=== PATIENT | female | born 1975 | race Asian ===

== ENCOUNTER 2017-12-10 13:26 | Observation (INO) | payer OTHER, SELFPAY ==
[2017-12-10 14:01] LABS: Absolute Lymphocytes (CBC) 2.7 K/uL (0.7-4.9); Absolute Monocytes 0.4 K/uL (0.1-1.3); Absolute Neutrophil 4.7 K/uL (1.8-8.0); Basophils % 0.5 % (0-1.3); Eosinophils % 0.9 % (0-4.4); Lymphocytes % 33.9 % (15.3-44.8); MCH 28.1 pg (27.0-35.0); MCV 84.3 fL (80-100); MPV 8.6 fL (7.6-11.3); Monocytes % 5.1 % (3.3-12.3); RBC Red Blood Cell Count 4.75 M/uL (3.86-4.86)
[2017-12-10 14:06] LABS: Protime INR 1.15
--- NOTE | 2017-12-10 14:14 | RAD REPORT ---
EXAM DESCRIPTION: RAD - Chest Single View - 12/10/2017 2:08 pm CLINICAL HISTORY: Chest pain. COMPARISON: None. FINDINGS: Portable technique limits examination quality. The lungs are grossly clear. The heart is normal in size. No displaced fractures. IMPRESSION: No acute intrathoracic process suspected.
[2017-12-10 14:18] LABS: Bicarbonate 25 mEq/L (21-31); Glucose Level 122 mg/dL (65-120); Potassium 3.5 mEq/L (3.6-5.0); Sodium Level 133 mEq/L (135-145)
[2017-12-10 14:24] LABS: ALT/SGPT 21 IU/L (10-60); AST/SGOT 21 IU/L (10-42); Alkaline Phosphatase 63 IU/L (42-121); BUN Blood Urea Nitrogen 9 mg/dL (6-20); Bilirubin Direct 0.1 mg/dL (0-0.2); Bilirubin Total 0.6 mg/dL (0.3-1.2); Creatine Phosphokinase 59 IU/L (22-269); Magnesium 1.9 mg/dL (1.8-2.5); Protein, Total 7.8 g/dL (6.0-8.3)
[2017-12-10 14:26] LABS: CKMB Creatine Kinase MB 1.2 ng/ml (0.3-4.0)
--- NOTE | 2017-12-10 14:53 | RAD REPORT ---
EXAM DESCRIPTION: CT - Angio Aorta For Dissection - 12/10/2017 2:40 pm CLINICAL HISTORY: Chest pain radiating to the back. COMPARISON: None. TECHNIQUE: CT angiography of the aorta was performed with volume rendering. All CT scans are performed using dose optimization technique as appropriate and may include automated exposure control or mA/KV adjustment according to patient size. FINDINGS: A left aortic arch is present with normal branching pattern of the great vessels.No acute aortic finding is seen such as aneurysm, penetrating ulcer or dissection. The celiac axis and SMA de monstrate a common trunk origin off the aorta which is widely patent. The SHANELLE and renal arteries are widely patent. No evidence of pulmonary embolism. The lungs are clear. The liver demonstrates no focal mass or biliary dilatation.The spleen, pancreas, adrenal glands and k idneys are within normal limits for arterial phase imaging. No bowel obstruction, free fluid or abscess.No pathologic enlarged lymphadenopathy identified. No fracture or worrisome bone lesion seen. IMPRESSION: No acute aortic finding is demonstrated.
[2017-12-10] MEDS ORDERED: ONDANSETRON 4 MG (ODT) TAB PO PRN (15:28)
[2017-12-10] MEDS ORDERED: ENOXAPARIN 60 MG/0.6 ML SQ ONE (15:28)
[2017-12-10] MEDS ORDERED: ACETAMINOPHEN 500 MG TAB PO PRN (15:28)
--- NOTE | 2017-12-10 15:53 | EDPHYS ---
Physician Documentation [facility] Name: Alysha Thomas Age: 42 yrs Sex: Female : 1975 Arrival Date: 12/10/2017 Time: 13:26 Bed 8 Private MD: ED Physician Sae Armenta HPI: 12/10 13:31 This 42 yrs old Female presents to ER via EMS with complaints of Chest Pain > 30 rh1 y/o. 13:31 The patient or guardian reports chest pain that is located primarily in the substernal rh1 area. Onset: 2 day(s) ago. The pain radiates to the left arm, back. Associated signs and symptoms: Pertinent positives: abdominal pain, shortness of breath, Pertinent negatives: cough, diaphoresis, dizziness, headache, lower extremity pain, lower extremity swelling, lightheadedness, nausea, near syncope, palpitations, recent travel, syncope, vomiting. The chest pain is described as a pressure. Duration: The patient or guardian reports multiple episodes, that are intermittent, with no pattern. Modifying factors: The symptoms are alleviated by antacids, NTG, X1. the symptoms are aggravated by movement. Severity of pain: At its worst the pain was moderate in the emergency department the pain is unchanged. EMS care prior to arrival includes: aspirin, nitroglycerin. The patient has experienced a previous episode, "ulcer". The patient has not recently seen a physician. Pt reports 2 days ago she began with sternal chest pain described as "pressure," that radiates into upper back and left arm to her hand today. Her pain will come and go, initially was mildly improved with taking antacids, but has been worse since this am. She has increased pain with lifting her child at home. She will have intermittent SOB. She denies any vomiting, diaphoresis, urinary symptoms.. Historical: - Allergies: 13:29 Unknown cough medicine; la1 - PMHx: 13:29 gastric ulcer; la1 - Immunization history:: Adult Immunizations up to date. - Social history:: Smoking status: Patient/guardian denies using tobacco. ROS: 13:57 Constitutional: Negative for fever, chills rh1 13:57 ENT: Negative for difficulty swallowing, difficulty handling secretions, hoarseness. 13:57 Neck: Negative for pain with movement, pain at rest. 13:57 Cardiovascular: Positive for chest pain, Negative for edema, orthopnea, palpitations. 13:57 Respiratory: Positive for shortness of breath, Negative for cough, dyspnea on exertion, hemoptysis, wheezing. 13:57 Abdomen/GI: Positive for abdominal pain, Negative for nausea, vomiting, and diarrhea. 13:57 Back: Positive for radiated pain, Negative for decreased range of motion. 13:57 MS/extremity: Positive for pain, of the left arm, Negative for decreased range of motion, paresthesias. 13:57 Skin: Negative for diaphoresis. 13:57 Neuro: Negative for altered mental status, dizziness, headache, numbness, tingling, weakness. 13:57 All other systems are negative. Exam: 13:57 Constitutional: This is a well developed, well nourished patient who is awake, alert, rh1 and in no acute distress. Head/Face: Normocephalic, atraumatic. ENT: Nares patent. No nasal discharge, no septal abnormalities noted. Tympanic membranes are normal and external auditory canals are clear. Oropharynx with no redness, swelling, or masses, exudates, or evidence of obstruction, uvula midline. Mucous membranes moist. Neck: Trachea midline, and no cervical lymphadenopathy. Supple, full range of motion without nuchal rigidity. No Meningismus. Chest/axilla: Normal chest wall appearance and motion. Nontender with no deformity. No lesions are appreciated. Cardiovascular: Regular rate and rhythm with a normal S1 and S2. No gallops, murmurs, or rubs. No JVD. No pulse deficits. Respiratory: Lungs have equal breath sounds bilaterally, clear to auscultation. No rales, rhonchi or wheezes noted. No increased work of breathing. 13:57 Skin: Warm, dry with normal turgor. Normal color with no rashes, no lesions, and no evidence of cellulitis. MS/ Extremity: Pulses equal, no cyanosis. Neurovascular intact. Full, normal range of motion. 13:57 Cardiovascular: Pulses: no pulse deficits are appreciated, Pulses are 2+ in right radial artery, right posterior tibial artery, right dorsalis pedis artery, left radial artery, left posterior tibial artery and left dorsalis pedis artery. 13:57 Abdomen/GI: Inspection: abdomen appears normal, bruising, is not seen, distension, is not seen, Bowel sounds: normal, in all quadrants, active, all quadrants, Palpation: soft, in all quadrants, mild abdominal tenderness, in the epigastric area and left upper quadrant, rebound tenderness, is not appreciated, involuntary guarding, is not appreciated, Indicators: McBurney's point is not tender, Lilly's sign is negative, Rovsing's sign is negative, Liver: no appreciated palpable abnormalities. 13:57 Back: pain, that is mild, that is moderate, of the left scapular area, right scapular area, thoracic area and lumbar area, ROM is normal, painless, CVA tenderness, is absent. 13:57 Back: Exam negative for ecchymosis 13:57 Neuro: Orientation: is normal, to person, place \\T\\ time. Mentation: is normal, lucid, able to follow commands, Motor: is normal, moves all fours, strength is 5/5 in all extremities, Sensation: is normal, no obvious gross deficits, numbness, is not appreciated, tingling, is not appreciated. Vital Signs: 13:29 BP 123 / 74; Pulse 74; Resp 16; Temp 98.4(O); Pulse Ox 100% on R/A; Weight 58.97 kg; la1 Height 4 ft. 10 in. (147.32 cm); 13:46 BP 114 / 82 LA; dh3 13:46 BP 117 / 65 RA; dh3 14:15 BP 102 / 75; Pulse 70; Resp 18 S; Pulse Ox 100% on R/A; jl7 15:01 BP 103 / 61; Pulse 70; Resp 16 S; Pulse Ox 100% on R/A; jl7 15:36 BP 111 / 67; Pulse 68; Resp 16 S; Pulse Ox 99% on R/A; jl7 16:30 BP 109 / 65; Pulse 69; Resp 16 S; Pulse Ox 100% on R/A; jl7 17:35 BP 124 / 70; Pulse 70; Resp 16 S; Pulse Ox 100% on R/A; jl7 13:29 Body Mass Index 27.17 (58.97 kg, 147.32 cm) la1 MDM: 13:31 Patient medically screened. rh1 15:50 Data reviewed: vital signs, nurses notes, lab test result(s), EKG, radiologic studies, rh1 plain films, I have discussed the patient's presentation/case with the attending Emergency Department Physician; and as a result, I will admit patient. Data interpreted: Pulse oximetry: on room air is 99 %. Interpretation: normal. Counseling: I had a detailed discussion with the patient and/or guardian regarding: the historical points, exam findings, and any diagnostic results supporting the discharge/admit diagnosis, lab results, radiology results, the need for further work-up and treatment in the hospital. Physician consultation: Cherry Hanley MD was called at 15:30, was contacted at 15:30, regarding admission. 16:05 Physician consultation: Cherry Hanley MD in the emergency department to see patient at [facility] 16:05. 12/10 13:43 Order name: Basic Metabolic Panel; Complete Time: 14:30 12/10 13:43 Order name: BNP; Complete Time: 14:30 12/10 13:43 Order name: CBC with Diff; Complete Time: 14:05 [facility] 12/10 13:43 Order name: Ckmb; Complete Time: 14:30 [facility] 12/10 13:43 Order name: CPK; Complete Time: 14:30 12/10 13:43 Order name: LFT's; Complete Time: 14:30 12/10 13:43 Order name: Magnesium; Complete Time: 14:30 12/10 13:43 Order name: PT-INR; Complete Time: 14:10 12/10 13:43 Order name: Ptt, Activated; Complete Time: 14:10 12/10 13:43 Order name: Troponin (emerg Dept Use Only); Complete Time: 14:30 [facility] 12/10 15:32 Order name: Thyroid Stimulating Hormone EDMS 12/10 15:32 Order name: CBC with Automated Diff EDMS 12/10 15:32 Order name: CBC with Automated Diff EDMS 12/10 15:32 Order name: Comprehensive Metabolic Panel EDMS 12/10 13:43 Order name: XRAY Chest (1 view); Complete Time: 14:30 12/10 13:43 Order name: CT Aorta for Dissection; Complete Time: 14:57 rh1 12/10 15:32 Order name: Echo with Doppler EDMS 12/10 15:32 Order name: Comprehensive Metabolic Panel EDMS 12/10 15:32 Order name: Lipid Profile EDMS 12/10 15:32 Order name: Lipid Profile [facility] 12/10 15:32 Order name: Magnesium [facility] 12/10 15:32 Order name: Magnesium [facility] 12/10 15:32 Order name: Phosphorus [facility] 12/10 15:32 Order name: Phosphorus [facility] 12/10 15:32 Order name: Troponin I [facility] 12/10 15:32 Order name: Troponin I [facility] 12/10 15:32 Order name: Troponin I [facility] 12/10 15:32 Order name: Troponin I [facility] 12/10 15:39 Order name: Urine Dipstick--Ancillary (enter results) [facility] 12/10 15:39 Order name: Urine --Ancillary (enter results) [facility] 12/10 13:43 Order name: EKG; Complete Time: 13:43 12/10 13:43 Order name: Cardiac monitoring; Complete Time: 13:46 12/10 13:43 Order name: EKG - Nurse/Tech; Complete Time: 13:46 12/10 13:43 Order name: IV Saline Lock; Complete Time: 13:46 12/10 13:43 Order name: Labs collected and sent; Complete Time: 13:46 12/10 13:43 Order name: O2 Per Protocol; Complete Time: 13:46 12/10 13:43 Order name: O2 Sat Monitoring; Complete Time: 13:46 12/10 13:43 Order name: Urine Dipstick-Ancillary (obtain specimen); Complete Time: 15:34 12/10 13:43 Order name: Misc. Order: bilateral BP on upper extremities please; Complete Time: 13:49 [facility] 12/10 15:32 Order name: CONS Physician Consult [facility] 12/10 15:32 Order name: Heart Healthy [facility] Administered Medications: 15:33 Drug: Lovenox 1 mg/kg Route: Sub-Q; Site: abdomen; jl7 16:30 Follow up: Response: No adverse reaction jl7 Disposition: 12/10/17 15:52 Hospitalization ordered by Cherry Hanley for Observation. Preliminary diagnosis are Other chest pain, Shortness of breath, ACS. - Bed requested for Telemetry/MedSurg (observation). - Status is Observation. jl7 - Condition is Stable. - Problem is new. - Symptoms have improved. UTI on Admission? No Addendum: 12/13/2017 07:45 Co-signature as Attending Physician, Sae Armenta MD I agree with the assessment and w a plan of care. Signatures: Dispatcher [employer] EDMS John Grimes, RN RN la1 Rosi Contreras, MAYUR HEEL DIPPER rh1 Amrit Smalls, RN RN jl7 Sae Armenta MD MD wa [place], MyKena 2 Corrections: (The following items were deleted from the chart) 12/10 13:58 13:31 Pt reports 2 days ago she began with sternal chest pain, that radiates into upper rh1 back and left arm today.. rh1 14:06 13:31 Pt reports 2 days ago she began with sternal chest pain described as "pressure," rh1 that radiates into upper back and left arm today. Her pain will come and go, initially was mildly improved with taking antacids, but has been worse since this am. She has increased pain with lifting her child at home. She will have intermittent SOB. She denies any vomiting, diaphoresis, urinary symptoms.. rh1
--- NOTE | 2017-12-10 15:53 | ER ---
Nurse's Notes [facility] Name: Alysha Thomas Age: 42 yrs Sex: Female : 1975 Arrival Date: 12/10/2017 Time: 13:26 Bed 8 Private MD: Diagnosis: Other chest pain;Shortness of breath;ACS Presentation: 12/10 13:27 Presenting complaint: EMS states: intermittent chest pressure for 2 days, worse today, la1 Pain also in left arm, upper back and side of neck. Pt reports hx of similar pain with gastric ulcer. EMS gave 1 SL nitro and 324 ASA TENTER FEEDER. Transition of care: patient was not received from another setting of care. Onset of symptoms was December 10, 2017. Care prior to arrival: None. 13:27 Method Of Arrival: EMS: [facility] la1 13:27 Acuity: IVETTE 3 la1 Historical: - Allergies: 13:29 Unknown cough medicine; la1 - PMHx: 13:29 gastric ulcer; la1 - Immunization history:: Adult Immunizations up to date. - Social history:: Smoking status: Patient/guardian denies using tobacco. Screenin:45 Abuse screen: Denies threats or abuse. Denies injuries from another. Nutritional jl7 screening: No deficits noted. Tuberculosis screening: No symptoms or risk factors identified. Fall Risk IV access (20 points). Total [place] Fall Scale indicates No Risk (0-24 pts). Assessment: 13:45 General: Appears in no apparent distress. uncomfortable, Behavior is calm, cooperative, jl7 appropriate for age. Pain: Complains of pain in anterior aspect of left upper chest Pain radiates to left arm Pain currently is 2 out of 10 on a pain scale. at worst was 9 out of 10 on a pain scale. Quality of pain is described as pressure, Pain began 2-3 days ago. Is intermittent, Also complains of shortness of breath. Neuro: Level of Consciousness is awake, alert, obeys commands, Oriented to person, place, time, situation. Cardiovascular: Heart tones S1 S2 present Patient's skin is warm and dry. Respiratory: Reports shortness of breath on exertion Airway is patent Respiratory effort is even, unlabored, shallow, Respiratory pattern is regular, symmetrical, Breath sounds are clear bilaterally. GI: No signs and/or symptoms were reported involving the gastrointestinal system. Patient currently denies diarrhea, nausea, vomiting. : No signs and/or symptoms were reported regarding the genitourinary system. EENT: No signs and/or symptoms were reported regarding the EENT system. Derm: Skin is pink, warm \T\ dry. Musculoskeletal: No signs and/or symptoms reported regarding the musculoskeletal system. 14:45 Reassessment: Patient and/or family updated on plan of care and expected duration. Pain jl7 level reassessed. Patient is alert, oriented x 3, equal unlabored respirations, skin warm/dry/pink. 15:37 Reassessment: Patient and/or family updated on plan of care and expected duration. Pain jl7 level reassessed. Patient is alert, oriented x 3, equal unlabored respirations, skin warm/dry/pink. Patient denies pain at this time. Patient states feeling better. 16:02 Reassessment: Spoke with lab about troponin and TSH, will be drawn at 1930 as ordered iw by Dr. Hanley. 16:30 Reassessment: Patient and/or family updated on plan of care and expected duration. Pain jl7 level reassessed. Patient is alert, oriented x 3, equal unlabored respirations, skin warm/dry/pink. Patient denies pain at this time. 17:30 Reassessment: No changes from previously documented assessment. Patient and/or family jl7 updated on plan of care and expected duration. Pain level reassessed. Patient is alert, oriented x 3, equal unlabored respirations, skin warm/dry/pink. Vital Signs: 13:29 BP 123 / 74; Pulse 74; Resp 16; Temp 98.4(O); Pulse Ox 100% on R/A; Weight 58.97 kg; la1 Height 4 ft. 10 in. (147.32 cm); 13:46 BP 114 / 82 LA; dh3 13:46 BP 117 / 65 RA; dh3 14:15 BP 102 / 75; Pulse 70; Resp 18 S; Pulse Ox 100% on R/A; jl7 15:01 BP 103 / 61; Pulse 70; Resp 16 S; Pulse Ox 100% on R/A; jl7 15:36 BP 111 / 67; Pulse 68; Resp 16 S; Pulse Ox 99% on R/A; jl7 16:30 BP 109 / 65; Pulse 69; Resp 16 S; Pulse Ox 100% on R/A; jl7 17:35 BP 124 / 70; Pulse 70; Resp 16 S; Pulse Ox 100% on R/A; jl7 13:29 Body Mass Index 27.17 (58.97 kg, 147.32 cm) la1 ED Course: 13:26 Patient arrived in ED. la1 13:28 Triage completed. la1 13:29 Arm band placed on left wrist. la1 13:31 Rosi Contreras NP is PHCP. rh1 13:31 Sae Armenta MD is Attending Physician. rh1 13:37 Inserted saline lock: 22 gauge in right antecubital area, using aseptic technique. dh3 Blood collected. 13:44 Radiology exam delayed due to lab results not completed at this time. IV insertion jg1 attempt and/or patient not having appropriate IV at this time. 13:44 EKG done, by quality control tech raw materials. reviewed by Rosi Contreras NP. 13:45 Radiology exam delayed due to test not completed at this time. j 13:45 Patient has correct armband on for positive identification. Placed in gown. Bed in low jl7 position. Call light in reach. Side rails up X 1. bus driver/monitor on. Pulse ox on. NIBP on. 13:45 Oxygen administration via nasal cannula \T\ 2L/min. jl7 13:46 Amrit Smalls RN is Primary Nurse. jl7 13:49 Initial lab(s) drawn, by mi, sent to lab. dh3 14:03 Radiology exam delayed due to lab results not completed at this time. jg1 14:06 Radiology exam delayed due to test not completed at this time. jg1 14:07 X-ray completed. Portable x-ray completed in exam room. 14:08 XRAY Chest (1 view) In Process Unspecified. EDMS 14:[address] via stretcher. vm2 14:41 CT Aorta for Dissection In Process Unspecified. EDMS 15:06 EKG done, by quality control tech raw materials. reviewed by Rosi Contreras NP Repeat EKG. at1 15:33 Urine collected: clean catch specimen, cloudy. 3 15:51 Cherry Hanley MD is Hospitalizing Provider. rh1 17:27 No provider procedures requiring assistance completed. Patient admitted, IV remains in jl7 place. intact, No redness/swelling at site. Administered Medications: 15:33 Drug: Lovenox 1 mg/kg Route: Sub-Q; Site: abdomen; jl7 16:30 Follow up: Response: No adverse reaction jl7 Outcome: 15:52 Decision to Hospitalize by Provider. rh1 17:27 Admitted to Tele accompanied by tech, via wheelchair, room 402, with chart, Report jl7 called to MARLENE Byrne 17:27 Condition: stable 17:27 Discharge instructions given to patient, family, Instructed on the need for admit, Demonstrated understanding of instructions. 17:33 Patient left the ED. jl7 Signatures: Dispatcher [employer] Melani William jJocelin Staples, RN RN guillaume Leiva, Tara Green, church history teacher EKG [place]1 John Grimes RN RN la1 Grace Grimm Rachel, MAYUR PAMPHLET DISTRIBUTOR 1 Amrit Smalls RN RN jl7 Tiffanie Betancur [facility] Sonia Chiu [facility]
[2017-12-10] MEDS: NA CHLORIDE 0.9% 1,000 ML IV SCH (16:00)
[2017-12-10 17:52] VITALS: BMI 27.1
[2017-12-10 18:10] LABS: Urine Blood 3+ (NEG); Urine Glucose NEGATIVE (NEG); Urine Protein NEGATIVE (NEG); Urine Specific Gravity <1.005 (1.005-1.030); Urine pH 6.5 (5.0-7.0)
--- NOTE | 2017-12-10 18:14 | P.HP ---
Certification for Inpatient Patient admitted to: Observation With expected LOS: <2 Midnights Patient will require the following post-hospital care: None Practitioner: I am a practitioner with admitting privileges, knowledge of patient current condition, hospital course, and medical plan of care. Services: Services provided to patient in accordance with Admission requirements found in Title 42 Section 412.3 of the Code of Federal Regulations Patient History Date of Service: 12/10/17 Primary Care Provider: Jack Chavez Reason for admission: Chest Pain History of Present Illness: This is a 42-year-old female with no significant past medical history who presented to the ED complaining of having some chest pain that started about 2 days ago. Patient stated that she was in her usual state of health until she started having chest pain in her left side which is radiating down to her left arm in her back. Associated with the chest pain. Patient also had some upset stomach. Patient stated that she has never had symptoms before and thus decided to come to the ER T further checked out. Patient does not currently take any medications at home usually is not great health. In the ER patient had elevated troponin x1 0.07 an EKG was concerning for flipped T-waves and thus medicine was consulted to admit the patient for ACS rule out Allergies Unknown cough medicine Allergy (Uncoded 12/10/17 17:37) Unknown Home Medications: Omeprazole [Prilosec] 40 mg PO DAILY 12/10/17 - Past Medical/Surgical History Has patient received pneumonia vaccine in the past: No Diabetic: Yes -: Borderline diabetes -: C-sec X2 -: Cyst removal of Left breast - 20 years ago - Family History Father -: Heart disease, Diabetes Mother -: Hypertension - Social History Smoking Status: Never smoker Alcohol use: No CD- Drugs: No Caffeine use: Yes Place of Residence: Home Review of Systems General: As per HPI Physical Examination - Vital Signs Temperature: 98.6 F Blood Pressure: 118/56 Pulse: 74 Respirations: 16 Pulse Ox (%): 98 - Physical Exam General: Alert, In no apparent distress, Oriented x3 HEENT: Atraumatic, PERRLA, Mucous membr. moist/pink, EOMI, Sclerae nonicteric Neck: Supple, 2+ carotid pulse no bruit, No LAD, Without JVD or thyroid abnormality Respiratory: Clear to auscultation bilaterally, Normal air movement Cardiovascular: Regular rate/rhythm, Normal S1 S2 Gastrointestinal: Normal bowel sounds, No tenderness Musculoskeletal: No tenderness Integumentary: No rashes Neurological: Normal gait, Normal speech, Normal strength at 5/5 x4 extr, Normal tone, Normal affect Lymphatics: No axilla or inguinal lymphadenopathy - Studies Laboratory Data (last 24 hrs) 12/10/17 13:35: PT 13.6 H, INR 1.15, APTT 24.9 12/10/17 13:35: WBC 7.9, Hgb 13.3, Hct 40.0, Plt Count 237 12/10/17 13:35: B-Natriuretic Peptide 22 12/10/17 13:35: Sodium 133 L, Potassium 3.5 L, BUN 9, Creatinine 0.56, Glucose 122 H, Magnesium 1.9, Total Bilirubin 0.6, AST 21, ALT 21, Alkaline Phosphatase 63 Assessment and Plan - Problems (Diagnosis) (1) Chest pain Current Visit: Yes Status: Acute Plan: Atypical Chest Pain -Troponin x 1 mildly elevated with EKG changes. -Echo Pending -Cardiology consulted. Awaiting reccs -Will repeat troponin -ASA, Statin and BB Qualifiers: Chest pain type: unspecified Qualified Code(s): R07.9 - Chest pain, unspecified Discharge Plan: Home Plan to discharge in: 24 Hours - Advance Directives Does patient have a Living Will: No Does patient have a Durable POA for Healthcare: No - Code Status/Comfort Care Code Status Assessed: Yes Critical Care: No
[2017-12-10] MEDS ORDERED: ATORVASTATIN 40 MG TAB PO SCH (21:00)
[2017-12-11] MEDS: NA CHLORIDE 0.9% 1,000 ML IV SCH (03:47)
[2017-12-11 04:06] VITALS: O2SAT 100
[2017-12-11] MEDS ORDERED: METOPROLOL XL 25 MG TAB PO SCH (06:00)
[2017-12-11] MEDS ORDERED: PANTOPRAZOLE 40MG TABLET PO SCH (06:30)
[2017-12-11 07:06] LABS: ALT/SGPT 20 IU/L (10-60); AST/SGOT 21 IU/L (10-42); Albumin 3.3 g/dL (3.2-5.5); Alkaline Phosphatase 51 IU/L (42-121); BUN Blood Urea Nitrogen 10 mg/dL (6-20); Bicarbonate 23 mEq/L (21-31); Bilirubin Total 0.4 mg/dL (0.3-1.2); Glucose Level 181 mg/dL (65-120); HDL Cholesterol 23 mg/dL (29-89); LDL Cholesterol, Calculated ND (<130); Magnesium 1.8 mg/dL (1.8-2.5); Phosphorus 2.7 mg/dL (2.5-4.3); Potassium 3.7 mEq/L (3.6-5.0); Protein, Total 6.1 g/dL (6.0-8.3); Sodium Level 137 mEq/L (135-145)
[2017-12-11 07:09] LABS: Absolute Lymphocytes (CBC) 2.3 K/uL (0.7-4.9); Absolute Monocytes 0.4 K/uL (0.1-1.3); Absolute Neutrophil 3.8 K/uL (1.8-8.0); Basophils % 0.6 % (0-1.3); Eosinophils % 1.7 % (0-4.4); Hematocrit 35.5 % (36.0-45.0); MCH 29.4 pg (27.0-35.0); MCV 84.4 fL (80-100); Monocytes % 6.4 % (3.3-12.3)
[2017-12-11 07:26] LABS: LDL, Direct 42 mg/dl (<130)
[2017-12-11] MEDS ORDERED: ASPIRIN 81 MG CHEWABLE TABLET PO SCH (09:00)
[2017-12-11] MEDS ORDERED: HOME MED 1 EA UNK (Omeprazole [Prilosec] 40 MG) PO SCH (09:00)
[2017-12-11 13:46] VITALS: BP 153/89; TEMP 98.2
--- NOTE | 2017-12-11 14:29 | P.SSS ---
Patient History Date of Service: 12/11/17 Primary Care Provider: [place] Reason for admission: Chest Pain History of Present Illness: This is a 42-year-old female with no significant past medical history who presented to the ED complaining of having some chest pain that started about 2 days ago. Patient stated that she was in her usual state of health until she started having chest pain in her left side which is radiating down to her left arm in her back. Associated with the chest pain. Patient also had some upset stomach. Patient stated that she has never had symptoms before and thus decided to come to the ER T further checked out. Patient does not currently take any medications at home usually is not great health. In the ER patient had elevated troponin x1 0.07 an EKG was concerning for flipped T-waves and thus medicine was consulted to admit the patient for ACS rule out Allergies Unknown cough medicine Allergy (Uncoded 12/10/17 17:37) Unknown Home Medications: Omeprazole [Prilosec] 40 mg PO DAILY 12/10/17 Aspirin Chewable [Aspirin Chewable*] 81 mg PO DAILY #30 tab.chew 12/11/17 Atorvastatin Calcium [Lipitor] 40 mg PO BEDTIME #30 tab 12/11/17 Fenofibrate [Tricor*] 160 mg PO DAILY #30 tab 12/11/17 Metoprolol Succinate [Toprol Xl*] 12.5 mg PO [id number] #30 tab 12/11/17 - Past Medical/Surgical History Has patient received pneumonia vaccine in the past: No Diabetic: Yes -: Borderline diabetes -: C-sec X2 -: Cyst removal of Left breast - 20 years ago - Family History Father -: Heart disease, Diabetes Mother -: Hypertension - Social History Smoking Status: Never smoker Alcohol use: No CD- Drugs: No Caffeine use: Yes Place of Residence: Home Review of Systems General: As per HPI Physical Examination - Vital Signs Temperature: 98.2 F Blood Pressure: 153/89 Pulse: 88 Respirations: 18 Pulse Ox (%): 99 - Physical Exam General: Alert, In no apparent distress, Oriented x3 HEENT: Atraumatic, PERRLA, Mucous membr. moist/pink, EOMI, Sclerae nonicteric Neck: Supple, 2+ carotid pulse no bruit, No LAD, Without JVD or thyroid abnormality Respiratory: Clear to auscultation bilaterally, Normal air movement Cardiovascular: Regular rate/rhythm, Normal S1 S2 Gastrointestinal: Normal bowel sounds, No tenderness Musculoskeletal: No tenderness Integumentary: No rashes Neurological: Normal gait, Normal speech, Normal strength at 5/5 x4 extr, Normal tone, Normal affect Lymphatics: No axilla or inguinal lymphadenopathy - Diagnosis (Problem(s)) (1) Chest pain Status: Acute Plan: Atypical Chest Pain -Troponin x 2 mildly elevated with EKG changes. -Echo WNL with EF of 75% -Cardiology consulted. -Reccs Outpt vs Inpatient Cardiac Cath -Pt wants to go home and would like to get Outpt Cardiac Cath. [facility], BB and Fenofibrate Patient to be discharged home today and have follow up with cardiology on Wednesday at 8:30 a.m. to be scheduled for cardiac catheterization on Wednesday morning. Patient will get prescription for aspirin beta-xander statin and phenol fibroid. Patient was asked to return to the ER if she has started having nausea vomiting chest pain or any shortness of breath or any other symptoms associated with her chest. Qualifiers: Chest pain type: unspecified Qualified Code(s): R07.9 - Chest pain, unspecified - Disposition Disposition: ROUTINE DISCHARGE Condition: GOOD Patient Discharge Instructions: Please f/u with Dr Ray in the clinic on Wednesday at 8:30 AM. -You will be scheduled for Heart Catherization on wednesday. New medication. ASA 81mg daily. Lipitor 40mg daily. Fenofibrate 145mg daily. Metoprolol 12.5mg daily. You will need to eat low fat and low carb diet. Diet: Low Fat diet and Carb diet. Activity: Ad suha
--- NOTE | 2017-12-11 17:54 | CON ---
Date of Consultation: 12/11/2017 The patient admitted on 12/10/2017. I saw the patient on 12/11/2017. Reason For Consultation: Acute coronary syndrome. History Of Present Illness: Ms. Thomas is a 42-year-old woman who works for [employer]. She do es not have really any past medical history except for occasional gastroesophageal reflux disease for which she takes Prilosec. She has a strong family history of heart disease. She has a strong famil y history of dyslipidemia. She came in with chest pain radiating to her left arm intermittently for about 3 days. She was noted to have a normal EKG chest x-ray, CPK, MB, but had a positive troponin o f 0.07. She was found to have a triglyceride of 720. She is pain-free after metoprolol, aspirin, an d Lipitor. Past Medical History: Otherwise negative. Allergies: TO SOME COUGH MEDICINE THAT IS [id number]. Review of Systems: Negative. Social History: Negative. Family History: Positive for heart disease in her grandparents and her father. Physical Examination: General: She appeared to be slightly anxious, but no acute distress. Vital Signs: Stable. She was afebrile. HEENT: Negative. Neck: Supple. No bruit. Chest: Clear. Cardiac: Reveals regular rhythm and rate. No murmurs, gallops, or rubs. Abdomen: Benign. Extremities: Reveal No clubbing, cyanosis, or edema. Diagnostic Data: As stated earlier. Impression And Plan: 1.Symptoms of chest pain radiating to the left arm with positive enzymes, positive family history, a nd triglycerides of 720. The case was discussed with Ms. Thomas. She obviously had non-ST elevation myocardial infarction. She is asymptomatic. She needs to be on statin, beta blockers, and aspirin. She is also on Prilosec. I would avoid Plavix for now. We will plan to do a heart catheterization early next week. She understand the risks and the benefit of the procedure. She agrees to proceed. The case was discussed with her and Dr. Hanley. MARZENA/LEONA Voice ID: [id number] Report ID: [id number]
[2017-12-12] MEDS ORDERED: FENOFIBRATE 160 MG TAB PO SCH (09:00)
--- NOTE | 2017-12-12 22:42 | EKG ---
Test Date: 2017-12-10 Test Time: 15:01:46 Water Pump Operator: MEDINA MEASUREMENT RESULTS: Intervals: Rate: 69 ME: 146 QRSD: 74 QT: 472 QTc: 505 [place]: P: 66 ME: 146 QRS: 10 T: -82 INTERPRETIVE STATEMENTS: Normal sinus rhythm T wave abnormality, consider inferolateral ischemia Prolonged QT Abnormal ECG Compared to ECG 12/10/2017 13:39:04 Prolonged QT interval now present Myocardial infarct finding no longer present T-wave abnormality still present Possible ischemia still present Electronically Signed On 12-12-17 22:42:16 CDT by Kevin Gonzales
--- NOTE | 2017-12-12 22:43 | EKG ---
Test Date: 2017-12-10 Test Time: 13:39:04 Medical Office Receptionist: RANDI MEASUREMENT RESULTS: Intervals: Rate: 70 LA: 144 QRSD: 72 QT: 440 QTc: 475 [place]: P: 60 LA: 144 QRS: 2 T: -71 INTERPRETIVE STATEMENTS: Normal sinus rhythm Possible Inferior infarct, age undetermined T wave abnormality, consider lateral ischemia Abnormal ECG No previous ECG available for comparison Electronically Signed On 12-12-17 22:42:31 CDT by Kevin Gonzales
--- NOTE | 2017-12-13 07:45 | ECHO ---
HEIGHT: 4 ft 10 in WEIGHT: 130 lb 0 oz DATE OF STUDY: 12/10/[address]: Cherry Hanley MD 2-DIMENSIONAL: YES M.MODE: YES DOPPLER: YES COLOR FLOW: YES TDS: NO PORTABLE: NO DEFINITY: NO BUBBLE STUDY: NO DIAGNOSIS: ACS CARDIAC HISTORY: CATHERIZATION: NO SURGERY: NO PROSTHETIC VALVE: NO PACEMAKER: NO MEASUREMENTS (cm) DIASTOLIC (NORMALS) SYSTOLIC (NORMALS) IVSd 0.9 (0.6-1.2) LA Diam 2.6 (1.9-4.0) LVEF 75% LVIDd 3.8 (3.5-5.7) LVIDs 2.2 (2.0-3.5) %FS 43% LVPWd 0.8 (0.6-1.2) Ao Diam 2.2 (2.0-3.7) 2 DIMENSIONAL ASSESSMENT: RIGHT ATRIUM: NORMAL LEFT ATRIUM: NORMAL RIGHT VENTRICLE: NORMAL LEFT VENTRICLE: NORMAL TRICUSPID VALVE: NORMAL MITRAL VALVE: NORMAL PULMONIC VALVE: NORMAL AORTIC VALVE: NORMAL PERICARDIAL EFFUSION: NONE AORTIC ROOT: NORMAL LEFT VENTRICULAR WALL MOTION: NORMAL DOPPLER/COLOR FLOW: MILD TRICUSPID REGURGITATION. COMMENTS: MILD TRICUSPID REGURGITATION. NORMAL LEFT SIZE AND FUNCTION. NO WALL MOTION ABNORMALITY. TECHNOLOGIST: Campos BEAULIEU
== END 2017-12-11 14:12 | disposition home or self-care (01) ==
LOC: ER 13:26 → ERHOLD 15:29 → 4TH 17:27
PROVIDERS: ADMIT Nurse Practitioner Family; ATTEND Family Medicine
DX: R07.89 Other chest pain (principal)
CPT/HCPCS: 36415; 71045; 71275; 74175; 80048; 80053; 80061; 80076; 81003; 81025; 82550; 82553; 83690; 83735; 83880; 84100; 84443; 84484; 85025; 85610; 85730; 93005; 93306; 94760; 96372; 99285; G0378; J1650; J7030; Q9967

== ENCOUNTER 2017-12-14 00:20 | Observation (INO) | payer SELFPAY ==
--- NOTE | 2017-12-14 00:54 | ER ---
Nurse's Notes [facility] Name: Alysha Thomas Age: 42 yrs Sex: Female : 1975 Arrival Date: 12/14/2017 Time: 00:22 Bed 8 Private MD: Diagnosis: Other chest pain Presentation: 12/14 00:23 Presenting complaint: Patient states: I was seen here 2 weeks ago with chest pain and tl1 was suppose to have a cardiac cath but I rescheduled it because I was scared. I am still having chest pain. Transition of care: patient was not received from another setting of care. Onset of symptoms was December 14, 2017. Initial Sepsis Screen: Does the patient meet any 2 criteria? No. Patient's initial sepsis screen is negative. Does the patient have a suspected source of infection? No. Patient initial sepsis screen negative. Care prior to arrival: Medication(s) given: ASA, x 3, Nitro spray. 00:23 Method Of Arrival: EMS: [facility] tl1 00:23 Acuity: IVETTE 3 tl1 WEB CONTENT SPECIALIST: 00:24 LMP N/A - Irregular menses tl1 Historical: - Allergies: 00:43 brodil cough syrup; tl1 - Home Meds: 00:43 Metoprolol Tartrate Oral [Active]; fenofibrate oral oral [Active]; Aspirin Oral tl1 [Active]; atorvastatin oral oral [Active]; - PMHx: 00:43 gastric ulcer; High Cholesterol; tl1 - Immunization history:: Adult Immunizations up to date. - Social history:: Smoking status: Patient/guardian denies using tobacco. - Family history:: not pertinent. Screenin:58 Abuse screen: Denies threats or abuse. Denies injuries from another. Nutritional tl1 screening: No deficits noted. Tuberculosis screening: No symptoms or risk factors identified. Fall Risk IV access (20 points). Assessment: 00:58 General: Appears in no apparent distress. Behavior is calm, cooperative, appropriate tl1 for age. Pain: Pain does not radiate. Pain began 2 hours ago. Neuro: Level of Consciousness is awake, alert, obeys commands, Oriented to person, place, time. Cardiovascular: Reports chest pain, Capillary refill < 3 seconds Patient's skin is warm and dry. Rhythm is sinus rhythm Chest pain is described as mild, quality is indigestion, is located in epigastric area began 2 hours prior to arrival. Respiratory: Airway is patent Trachea midline Respiratory effort is even, unlabored, Breath sounds are clear bilaterally. GI: Abdomen is non-distended, Bowel sounds present X 4 quads. Abd is soft and non tender X 4 quads. : No signs and/or symptoms were reported regarding the genitourinary system. 01:54 Reassessment: Patient appears in no apparent distress at this time. Patient and/or ao family updated on plan of care and expected duration. Pain level reassessed. Patient is alert, oriented x 3, equal unlabored respirations, skin warm/dry/pink. Patient to be admitted to the hospital. Patient agree with the POC. 02:08 Reassessment: Dr Germain at bedside talking to patient. ao Vital Signs: 00:24 BP 110 / 73; Pulse 74; Resp 16; Temp 98.2; Pulse Ox 98% on R/A; Weight 58.06 kg; Height tl1 4 ft. 10 in. (147.32 cm); Pain 3/10; 01:54 BP 98 / 62; Pulse 82; Resp 16; Pulse Ox 100% ; Pain 0/10; ao 00:24 Body Mass Index 26.75 (58.06 kg, 147.32 cm) tl1 ED Course: 00:22 Patient arrived in ED. tl1 00:22 Teresa Aguilar, RN is Primary Nurse. tl1 00:24 Triage completed. tl1 00:25 Arm band placed on right wrist. EKG completed in triage. Results shown to MD. tl1 00:33 Pawel Jensen MD is Attending Physician. ghanshyam 00:40 X-ray completed. Portable x-ray completed in exam room. Patient tolerated procedure kw well. 00:41 XRAY Chest (1 view) In Process Unspecified. EDMS 00:46 Initial lab(s) drawn, by me, sent to lab. EKG done, by ED staff, reviewed by Pawel Jensen MD. 00:53 Martin Dorsey MD is Hospitalizing Provider. ghanshyam 01:53 Patient has correct armband on for positive identification. radiation monitor on. Pulse ao ox on. NIBP on. 01:53 Patient maintains SpO2 saturation greater than 95% on room air. ao 02:45 No provider procedures requiring assistance completed. Patient admitted, IV remains in ao place. Administered Medications: 00:54 Not Given (Patient had aspir in the way to ER): Aspirin 81 mg PO once ao 01:08 Drug: Lovenox 1 mg/kg Route: Sub-Q; Site: abdomen; ao 01:56 Follow up: Response: No adverse reaction ao 01:12 Drug: ProTONIX 40 mg Route: IVP; Site: right antecubital; ao 01:56 Follow up: Response: No adverse reaction ao Outcome: 00:53 Decision to Hospitalize by Provider. ghanshyam 02:45 Admitted to Tele accompanied by tech, room 430, Report called to MARLENE Irizarry ao 02:45 Condition: stable 02:45 Instructed on the need for admit. 02:46 Patient left the ED. ao Signatures: Dispatcher [employer] EDPawel Vasquez MD MD cha Whitley, Kimberlee kw Lasagna, Tonya, RN RN tl1 Edu Webster RN RN Cole Bustillo [facility]
--- NOTE | 2017-12-14 00:54 | EDPHYS ---
Physician Documentation [facility] Name: Alysha Thomas Age: 42 yrs Sex: Female : 1975 Arrival Date: 12/14/2017 Time: 00:22 Bed 8 Private MD: ED Physician Pawel Jensen HPI: 12/14 00:47 This 42 yrs old Female presents to ER via EMS with complaints of Chest Pain > 30 ghanshyam y/o. 00:47 The patient or guardian reports chest pain that is located primarily in the substernal ghanshyam area, anterior chest wall. Onset: this morning, yesterday. The pain does not radiate. Associated signs and symptoms: The patient has no apparent associated signs or symptoms. The chest pain is described as a pressure, sharp. Duration: The patient or guardian reports a single episode, that is now resolved. Modifying factors: The symptoms are alleviated by nothing. the symptoms are aggravated by nothing. Severity of pain: At its worst the pain was moderate in the emergency department the pain has resolved and did so just prior to arrival. The patient has not experienced similar symptoms in the past. 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 - Social history:: Smoking status: Patient/guardian denies using tobacco. - Family history:: not pertinent. ROS: 00:47 Constitutional: Negative for fever, chills, and weight loss, Eyes: Negative for injury, ghanshyam pain, redness, and discharge, ENT: Negative for injury, pain, and discharge, Neck: Negative for injury, pain, and swelling, Respiratory: Negative for shortness of breath, cough, wheezing, and pleuritic chest pain, Abdomen/GI: Negative for abdominal pain, nausea, vomiting, diarrhea, and constipation, Back: Negative for injury and pain, : Negative for injury, bleeding, discharge, and swelling, MS/Extremity: Negative for injury and deformity, Skin: Negative for injury, rash, and discoloration, Neuro: Negative for headache, weakness, numbness, tingling, and seizure, Psych: Negative for depression, anxiety, suicide ideation, homicidal ideation, and hallucinations, Allergy/Immunology: Negative for hives, rash, and allergies, Endocrine: Negative for neck swelling, polydipsia, polyuria, polyphagia, and marked weight changes, Hematologic/Lymphatic: Negative for swollen nodes, abnormal bleeding, and unusual bruising. 00:47 Cardiovascular: Positive for chest pain. Exam: 00:47 Constitutional: This is a well developed, well nourished patient who is awake, alert, ghanshyam and in no acute distress. Head/Face: Normocephalic, atraumatic. Eyes: Pupils equal round and reactive to light, extra-ocular motions intact. Lids and lashes normal. Conjunctiva and sclera are non-icteric and not injected. Cornea within normal limits. Periorbital areas with no swelling, redness, or edema. ENT: Nares patent. No nasal discharge, no septal abnormalities noted. Tympanic membranes are normal and external auditory canals are clear. Oropharynx with no redness, swelling, or masses, exudates, or evidence of obstruction, uvula midline. Mucous membranes moist. Neck: Trachea midline, no thyromegaly or masses palpated, and no cervical lymphadenopathy. Supple, full range of motion without nuchal rigidity, or vertebral point tenderness. No Meningismus. Chest/axilla: Normal chest wall appearance and motion. Nontender with no deformity. No lesions are appreciated. Cardiovascular: Regular rate and rhythm with a normal S1 and S2. No gallops, murmurs, or rubs. Normal PMI, no JVD. No pulse deficits. Respiratory: Lungs have equal breath sounds bilaterally, clear to auscultation and percussion. No rales, rhonchi or wheezes noted. No increased work of breathing, no retractions or nasal flaring. Abdomen/GI: Soft, non-tender, with normal bowel sounds. No distension or tympany. No guarding or rebound. No evidence of tenderness throughout. Back: No spinal tenderness. No costovertebral tenderness. Full range of motion. Skin: Warm, dry with normal turgor. Normal color with no rashes, no lesions, and no evidence of cellulitis. MS/ Extremity: Pulses equal, no cyanosis. Neurovascular intact. Full, normal range of motion. Neuro: Awake and alert, GCS 15, oriented to person, place, time, and situation. Cranial nerves II-XII grossly intact. Motor strength 5/5 in all extremities. Sensory grossly intact. Cerebellar exam normal. Normal gait. Psych: Awake, alert, with orientation to person, place and time. Behavior, mood, and affect are within normal limits. 00:47 Musculoskeletal/extremity: DVT Exam: No signs of deep vein thrombosis. no pain, no swelling, no tenderness, negative Homans' sign noted on exam, no appreciated bluish discoloration, no erythema, no increased warmth. Vital Signs: 00:24 BP 110 / 73; Pulse 74; Resp 16; Temp 98.2; Pulse Ox 98% on R/A; Weight 58.06 kg; Height tl1 4 ft. 10 in. (147.32 cm); Pain 3/10; 01:54 BP 98 / 62; Pulse 82; Resp 16; Pulse Ox 100% ; Pain 0/10; ao 00:24 Body Mass Index 26.75 (58.06 kg, 147.32 cm) tl1 MDM: 00:33 Patient medically screened. [facility] 00:48 Data reviewed: vital signs, nurses notes, lab test result(s), EKG, radiologic studies, ghanshyam plain films. 04 00:31 Order name: Basic Metabolic Panel 1 12/14 00:31 Order name: BNP tl1 12/14 00:31 Order name: CBC with Diff; Complete Time: 02:04 tl1 12/14 00:31 Order name: Ckmb; Complete Time: 02:04 tl1 12/14 00:31 Order name: CPK; Complete Time: 02:04 1 12/14 00:31 Order name: LFT's; Complete Time: 02:04 1 12/14 00:31 Order name: Magnesium; Complete Time: 02:04 tl1 12/14 00:31 Order name: PT-INR; Complete Time: 02:04 tl1 12/14 00:31 Order name: Ptt, Activated; Complete Time: 02:04 tl1 12/14 00:31 Order name: Troponin (emerg Dept Use Only); Complete Time: 02:04 tl1 12/14 00:31 Order name: Basic Metabolic Panel; Complete Time: 02:04 EDMS 12/14 00:32 Order name: BNP B-Type Natriuretic Peptide EDOH 12/14 00:38 Order name: Lipase [facility] 12/14 00:38 Order name: Lipase; Complete Time: 02:04 EDOH 12/14 00:31 Order name: XRAY Chest (1 view) [facility] 12/14 00:31 Order name: EKG; Complete Time: 00:32 tl1 12/14 00:31 Order name: Cardiac monitoring; Complete Time: 00:41 [facility] 12/14 00:31 Order name: EKG - Nurse/Tech; Complete Time: 00:41 [facility] 12/14 00:31 Order name: IV Saline Lock; Complete Time: 00:41 [facility] 12/14 00:31 Order name: Labs collected and sent; Complete Time: 00:46 [facility] 12/14 00:31 Order name: O2 Per Protocol; Complete Time: 00:41 [facility] 12/14 00:31 Order name: O2 Sat Monitoring; Complete Time: 00:41 [facility] 12/14 00:31 Order name: Urine Dipstick-Ancillary (obtain specimen); Complete Time: 01:35 [facility] 12/14 00:53 Order name: CONS Physician Consult EDOH 12/14 00:53 Order name: Echo with Doppler EDOH 12/14 01:36 Order name: Urine Dipstick--Ancillary (enter results) [facility] 12/14 01:54 Order name: Urine Dipstick-Ancillary; Complete Time: 02:04 EDMS Administered Medications: 00:54 Not Given (Patient had aspir in the way to ER): Aspirin 81 mg PO once ao 01:08 Drug: Lovenox 1 mg/kg Route: Sub-Q; Site: abdomen; ao 01:56 Follow up: Response: No adverse reaction ao 01:12 Drug: ProTONIX 40 mg Route: IVP; Site: right antecubital; ao 01:56 Follow up: Response: No adverse reaction ao Disposition: 12/14/17 00:53 Hospitalization ordered by Martin Dorsey for Observation. Preliminary diagnosis is Other chest pain. - Bed requested for Telemetry/MedSurg (observation). - Status is Observation. ao - Condition is Stable. - Problem is new. - Symptoms have improved. UTI on Admission? No Signatures: Dispatcher [employer] [facility] Maricarmen Carlson RN RN mw Anderson, Corey, MD MD cha Lasagna, Teresa, RN RN tl1 Edu Webster RN RN ao
[2017-12-14] MEDS ORDERED: PANTOPRAZOLE 40 MG INJ ONE (01:00)
[2017-12-14] MEDS ORDERED: ENOXAPARIN 60 MG/0.6 ML SQ ONE (01:00)
[2017-12-14 01:11] LABS: Bicarbonate 27 mEq/L (21-31); Glucose Level 193 mg/dL (65-120); Potassium 3.4 mEq/L (3.6-5.0); Sodium Level 136 mEq/L (135-145)
[2017-12-14 01:12] LABS: Absolute Lymphocytes (CBC) 2.6 K/uL (0.7-4.9); Absolute Monocytes 0.5 K/uL (0.1-1.3); Absolute Neutrophil 4.6 K/uL (1.8-8.0); Basophils % 0.5 % (0-1.3); Eosinophils % 2.3 % (0-4.4); Hematocrit 36.2 % (36.0-45.0); Lymphocytes % 33.2 % (15.3-44.8); MCH 28.5 pg (27.0-35.0); MCV 84.6 fL (80-100); MPV 8.6 fL (7.6-11.3); Monocytes % 6.4 % (3.3-12.3); RBC Red Blood Cell Count 4.28 M/uL (3.86-4.86)
[2017-12-14 01:15] LABS: Protime INR 1.34
[2017-12-14 01:17] LABS: ALT/SGPT 37 IU/L (10-60); AST/SGOT 36 IU/L (10-42); Albumin 3.8 g/dL (3.2-5.5); Alkaline Phosphatase 57 IU/L (42-121); BUN Blood Urea Nitrogen 10 mg/dL (6-20); Bilirubin Direct 0.1 mg/dL (0-0.2); Bilirubin Total 0.6 mg/dL (0.3-1.2); Creatine Phosphokinase 91 IU/L (22-269); Magnesium 1.8 mg/dL (1.8-2.5); Protein, Total 7.2 g/dL (6.0-8.3)
[2017-12-14 01:20] LABS: CKMB Creatine Kinase MB 1.1 ng/ml (0.3-4.0)
[2017-12-14 01:54] LABS: Urine Blood TRACE (NEG); Urine Glucose NEGATIVE (NEG); Urine Protein NEGATIVE (NEG); Urine pH 5.5 (5.0-7.0)
--- NOTE | 2017-12-14 02:29 | P.HP ---
Certification for Inpatient Patient admitted to: Observation With expected LOS: <2 Midnights Practitioner: I am a practitioner with admitting privileges, knowledge of patient current condition, hospital course, and medical plan of care. Services: Services provided to patient in accordance with Admission requirements found in Title 42 Section 412.3 of the Code of Federal Regulations Patient History Date of Service: 12/14/17 Reason for admission: chest pain History of Present Illness: Ms Thomas is a 42 years old woman, who was admitted 4 days ago for chest pain, at that time her tropoinin was elevated 0.07, Dr Ray recommended to do outpatient heart cath, however, the patient was scared and did not do it yet. Today she came to ED due to new episode of chest pain. She was talking by phone when suddenly start feeling chest pressure, radiated to her neck, associated with nausea. 7/10 of intensity. She denied vomiting, diaphoresis, or SOB. She was unable to say how long the pain last. The patient states that her BP was 178 /100's. At my encounter, she was very anxious, chest pain free. Lab work shows normal trop I, EKG SR 72 bpm, with possible inferior ischemia of unknown time. Allergies Unknown cough medicine Allergy (Uncoded 12/10/17 17:37) Unknown Home Medications: Omeprazole [Prilosec] 40 mg PO DAILY 12/10/17 Aspirin Chewable [Aspirin Chewable*] 81 mg PO DAILY #30 tab.chew 12/11/17 Atorvastatin Calcium [Lipitor] 40 mg PO BEDTIME #30 tab 12/11/17 Fenofibrate [Tricor*] 160 mg PO DAILY #30 tab 12/11/17 Metoprolol Succinate [Toprol Xl*] 12.5 mg PO [id number] #30 tab 12/11/17 - Past Medical/Surgical History Diabetic: Yes -: Borderline diabetes -: hypertriglyceridemia -: gastritis -: C-sec X2 -: Cyst removal of Left breast - 20 years ago - Family History Family History: Reviewed- Non-Contributory - Family History Father -: Heart disease, Diabetes Mother -: Hypertension - Social History Smoking Status: Never smoker Alcohol use: No CD- Drugs: No Caffeine use: Yes Place of Residence: Home Review of Systems 10-point ROS is otherwise unremarkable Physical Examination - Physical Exam General: Alert, In no apparent distress HEENT: Atraumatic, PERRLA, Mucous membr. moist/pink, EOMI, Sclerae nonicteric Neck: Supple, 2+ carotid pulse no bruit, No LAD, Without JVD or thyroid abnormality Respiratory: Clear to auscultation bilaterally, Normal air movement Cardiovascular: Regular rate/rhythm, Normal S1 S2 Gastrointestinal: Normal bowel sounds, No tenderness Musculoskeletal: No tenderness Integumentary: No rashes Neurological: Normal gait, Normal speech, Normal strength at 5/5 x4 extr, Normal tone, Normal affect Lymphatics: No axilla or inguinal lymphadenopathy - Studies Laboratory Data (last 24 hrs) 12/14/17 00:45: Lipase 30 12/14/17 00:45: PT 15.9 H, INR 1.34, APTT 25.5 12/14/17 00:45: WBC 7.9 D, Hgb 12.2, Hct 36.2, Plt Count 211 12/14/17 00:45: Sodium 136, Potassium 3.4 L, BUN 10, Creatinine 0.61, Glucose 193 H, Magnesium 1.8, Total Bilirubin 0.6, AST 36, ALT 37, Alkaline Phosphatase 57 Assessment and Plan - Problems (Diagnosis) (1) Hypertriglyceridemia Current Visit: Yes Status: Acute (2) Chest pain Current Visit: No Status: Acute Qualifiers: Chest pain type: unspecified Qualified Code(s): R07.9 - Chest pain, unspecified - Plan The patient will be admitted to the hospital due to chest pain. EKG shows no ST- T abnormalities, trop I negative. She had an ECHO done yesterday, reporting normal LV function with EF 75% without WMA. Mild tricuspid regurgitation. Will admit the patient under observation, repeat EKG, serial cardiac enzymes, consult cardiology, continue ASA, statins, beta xander. Will keep her NPO for potential cath in AM. - Advance Directives Does patient have a Living Will: No Does patient have a Durable POA for Healthcare: No - Code Status/Comfort Care Code Status Assessed: Yes Code Status: Full Code
[2017-12-14] MEDS ORDERED: ACETAMINOPHEN 500 MG TAB PO PRN (02:55)
[2017-12-14 03:12] VITALS: BMI 27.3
[2017-12-14] MEDS ORDERED: METOPROLOL XL 25 MG TAB PO SCH (06:00)
[2017-12-14] MEDS ORDERED: NA CHLORIDE 0.9% 1,000 ML ONE (08:13)
--- NOTE | 2017-12-14 08:26 | EKG ---
Test Date: 2017-12-14 Test Time: 00:31:11 [employer]: THEO MEASUREMENT RESULTS: Intervals: Rate: 72 MD: 146 QRSD: 74 QT: 392 QTc: 429 Seeley: P: 52 MD: 146 QRS: -13 T: -20 INTERPRETIVE STATEMENTS: Normal sinus rhythm Inferior infarct, age undetermined Abnormal ECG Compared to ECG 12/10/2017 15:01:46 Myocardial infarct finding now present T-wave abnormality no longer present Possible ischemia no longer present Prolonged QT interval no longer present Electronically Signed On 12-14-17 08:25:32 CDT by Tamir Ray
--- NOTE | 2017-12-14 08:32 | RAD REPORT ---
EXAM DESCRIPTION: RAD - Chest Single View - 12/14/2017 12:43 am CLINICAL HISTORY: Chest pain, pending cardiac catheterization COMPARISON: December 10 TECHNIQUE: AP portable chest image was obtained 0032 hours . FINDINGS: No pulmonary edema or other focal lung parenchymal process. Heart and vasculature are norm al. No measurable pleural effusion and no pneumothorax. No gross bony abnormality seen. No acute aort ic findings suspected. IMPRESSION: No acute cardiopulmonary process. No significant change from comparison.
[2017-12-14] MEDS ORDERED: ENOXAPARIN 40 MG/0.4 ML SQ SCH (09:00)
[2017-12-14] MEDS ORDERED: PANTOPRAZOLE 40MG TABLET PO SCH (09:00)
[2017-12-14] MEDS ORDERED: ASPIRIN EC 81 MG TAB PO SCH (09:00)
[2017-12-14] MEDS ORDERED: FENOFIBRATE 160 MG TAB PO SCH (09:00)
[2017-12-14] MEDS ORDERED: NA CHLORIDE 0.9% 0 ML ONE (10:26)
[2017-12-14] MEDS ORDERED: ATROPINE SULF 1 MG/10 ML SYR IV ONE (10:26)
[2017-12-14] MEDS ORDERED: FENTANYL CITR 100 MCG/2 ML ONE (10:26)
[2017-12-14] MEDS ORDERED: MIDAZOLAM HCL 2 MG/2 ML INJ ONE (10:26)
--- NOTE | 2017-12-14 12:15 | OP ---
Surgeon: Tamir Ray MD Dormitory Supervisor: Carol Marquez. Indication For Procedure: Admitted to Dr. Germain for unstable angina, status post subendocardial M I last week. Procedure In Detail: Brought to the label rewinder as an inpatient, prepped and draped in the routine ster ile fashion, given 2 mg of Versed for IV sedation. Right common femoral artery access was obtained w ith a 6-Georgian sheath. Six-Georgian catheters were used to do the coronary angiography. She was left dominant with minimal disease in the ostial OM. There was some minimal plaque build-up distally in t he RCA. Normal LAD and circumflex. Of note was that when we did angiogram of the right common femor al artery, she had spasm above the catheter and below the catheter may have been with issue with her coronaries. Operators: Tamir Ray M.D. Plan: Plan is for medical therapy. Discharged today. Follow up in 2 weeks. Continue home medicati on. Total Conscious Sedation: 30 minutes. Final Diagnosis: Minimal coronary artery disease. MARZENA/LEONA Voice ID: [id number] Report ID: [id number]
[2017-12-14] MEDS ORDERED: NITROGLYCERIN 0.4 MG/TAB SL PRN (12:24)
[2017-12-14] MEDS ORDERED: ACETAMINOPHEN 325 MG TABLET PO PRN (12:24)
--- NOTE | 2017-12-14 12:30 | CON ---
Admitted to Dr. Germain on 12/14/2017. Reason For Consultation: Chest pain. History Of Present Illness: Ms. Thomas is a 42-year-old [place] woman, who was admitted recently last week for chest pain, has non-ST elevation myocardial infarction. The plan was to do an outpatient h eart catheterization, but she came back last night with more chest pain. No nausea, vomiting, diapho resis, PND, orthopnea, pedal edema, palpitations, or syncope. Past Medical History: Dyslipidemia, possible diabetes, gastroesophageal reflux disease. Allergies: SHE IS ALLERGIC TO NO MEDICATION. Medications: Include aspirin, Lipitor, Tricor, Prilosec. She is not taking metoprolol as it makes h er very dizzy. Physical Examination: Vital Signs: Her blood pressure was 98/54. HEENT: Negative. Neck: Supple. No bruit. Chest: Clear to auscultation and percussion. Cardiac: Regular rhythm and rate without any murmurs, gallops, or rubs. Abdomen: Benign. Extremities: No clubbing, cyanosis, or edema. Diagnostic Data: All normal. Impression And Plan: The patient with recent non-ST elevation myocardial infarction and recurrent ch est pain. She is taking medications for dyslipidemia and gastroesophageal reflux disease, fenofibrat e for triglyceride issues. She could not tolerate . She is on aspirin. Blood pressures a nd heart rate are well controlled. She may have diabetes and checking hemoglobin A1c late r. We will perform heart catheterization today to define her coronary anatomy. She understands the risks and the benefits of the procedure and she agreed to proceed. MARZENA/LEONA Voice ID: [id number] Report ID: [id number]
[2017-12-14 12:32] VITALS: BP 98/56; TEMP 97.7; O2SAT 99
[2017-12-14] MEDS ORDERED: NA CHLORIDE 0.9% 1,000 ML IV SCH (13:00)
[2017-12-14] MEDS ORDERED: ATORVASTATIN 40 MG TAB PO SCH (21:00)
== END 2017-12-14 15:10 | disposition home or self-care (01) ==
LOC: ER 00:20 → ERHOLD 00:49 → 4TH 02:07
PROVIDERS: ADMIT Internal Medicine; ATTEND Internal Medicine
PROC: 4A023N7 Measurement of Cardiac Sampling and Pressure, Left Heart, Percutaneous Approach (ICD-10-PCS; principal; 2017-12-14)
PROC: B201YZZ Plain Radiography of Multiple Coronary Arteries using Other Contrast (ICD-10-PCS; 2017-12-14)
PROC: B205YZZ Plain Radiography of Left Heart using Other Contrast (ICD-10-PCS; 2017-12-14)
DX: R07.9 Chest pain, unspecified (principal); I25.10 Atherosclerotic heart disease of native coronary artery without angina pectoris; R73.03 Prediabetes; E78.1 Pure hyperglyceridemia; I25.2 Old myocardial infarction
CPT/HCPCS: 36415; 71045; 80048; 80076; 81003; 82550; 82553; 83690; 83735; 83880; 84484; 85025; 85610; 85730; 93005; 93454; 96372; 96374; 99285; C1760; C1893; C9113; G0378; J0583; J1650; J2250; J3010; J7030